=== PATIENT | male | born 1935 | race Caucasian/White ===

== ENCOUNTER → 2017-01-06 | Outpatient (CLI) | payer MEDICARE ==
[~2017-01-06] MED LIST: ASPIRIN PO; ASPIRIN325 M1 PO; ASPIRIN81 M2 PO; ASPIRIN81 MG PO; ATARAX PO; ATORVASTATIN CA10 MG PO; AZATHIOPRINE50 M1 PO; AZATHIOPRINE50 M2 PO; CALCIUM + D 6001 TA1 PO; CALCIUM 600 +1 EAC4 PO; CALCIUM 600 +1 EAC9 PO; COREG12.5 MG PO; COREG3.125 MG PO; COUMADIN5 MG PO; COZAAR25 MG PO; CYPROHEPTADINE H4 MG PO; DILANTIN PO; DYAZIDE 37.5/251 CAP PO; FLONASE16 GM; FLUTICASONE; HYDROMORPHONE HC2 MG PO; HYDROXYZINE HCL25 M1 PO; IMURAN50 MG PO; KEPPRA500 M1 PO; KEPPRA500 M2 PO; KEPPRA500 MG PO; KLONOPIN1 M1 PO; KLONOPIN1 MG PO; KLOR-CON PO; LASIX PO; LIPITOR PO; LIPITOR40 MG PO; LISINOPRIL5 MG PO; LO-DOSE ASPIRIN81 M1 PO; LORATADINE PO; LOSARTAN POTASS25 MG PO; LOSARTAN POTASS50 MG PO; LYRICA25 MG DOB; MECLIZINE HCL25 M2 PO; METANX CAPSULE1 EACH PO; METOPROLOL SUCC25 MG PO; METOPROLOL TAR25 MG PO; MULTIVITAMINS1 EAC3 PO; NEURONTIN600 MG PO; NEURONTIN800 MG PO; OXYCODON HCL-AP1 TA2 PO; OXYCODONE HCL10 M1 PO; PATIENT'S PHARMACY; PERCOCET 10/3251 TAB PO; PHENERGAN25 M1 PO; PLAVIX PO; PRAVACHOL PO; PREDNISONE PO; PRESERVISION A1 EAC1 PO; PRILOSEC40 MG PO; PRO AIR HFA; PROAIR HFA8.5 GM IH; PROMETHAZINE HC25 MG PO; PROTONIX PO; PULMICORT FLEXHALER; PULMICORT0.25 MG/2 IH; SINGULAIR PO; ST. JOSEPH ASP325 MG PO; SYNTHROID25 MCG PO; TEMOVATE 0.05%15 GM; TOPROL XL PO; TUSSIONEX PENN473 ML PO; VERAMYST10 GM; ZOFRAN ODT4 MG/UDTAB PO; ZOFRAN PO; ZOFRANODT PO; ZYRTEC10 M2 PO
--- NOTE | ~2017-01-06 | EKG ---
PATIENT: JUAN ALICIA UNIT #: [id number] Ventricular Rate: 89 BPM Atrial Rate: 89 BPM P-R Interval: 158 ms QRS Duration: 86 ms Q-T Interval: 360 ms QTC Calculation(Bezet): 438 ms P [place]: 84 degrees Calculated R [place]: -25 degrees Calculated T [place]: 51 degrees Diagnosis Line: Sinus rhythm with Premature atrial complexes Diagnosis Line: Voltage criteria for left ventricular hypertrophy Diagnosis Line: Cannot rule out Septal infarct (cited on or before Diagnosis Line: 06-MAR-2016) Diagnosis Line: Abnormal ECG Diagnosis Line: When compared with ECG of 06-MAR-2016 06:01, Diagnosis Line: Premature atrial complexes are now Present Diagnosis Line: Vent. rate has increased BY 33 BPM Diagnosis Line: Questionable change in initial forces of Septal Diagnosis Line: leads Diagnosis Line: T wave inversion no longer evident in Inferior Diagnosis Line: leads Diagnosis Line: Nonspecific T wave abnormality now evident in Diagnosis Line: Lateral leads Diagnosis Line: Confirmed by CAMMIE ARAUZ MD ([id number]) on Diagnosis Line: 01/08/2017 4:49:37 PM INTERPRETING MD: REGLA KERNS
[2017-01-06 16:12] LABS: HEMATOCRIT 43.1 % (38.0-50.0); HEMOGLOBIN 15.2 gm/dL (13.0-16.0); MEAN CORPUSCULAR HEMOGLOBIN 34.3 PG (28-34); MEAN CORPUSCULAR HGB CONC 35.4 g/dL (30-36); MEAN PLATELET VOLUME 7.4 FL (6.5-11.5); RED BLOOD COUNT 4.44 X10e (3.90-5.60); RED CELL DISTRIBUTION WIDTH 13.5 % (11.0-15.5)
== END | disposition home or self-care (01) ==
LOC: SLAB 15:57
PROVIDERS: Internal Medicine
DX: R06.00 Dyspnea, unspecified (principal)
CPT/HCPCS: 36415; 85027; 93005

== ENCOUNTER 2017-01-09 09:31 | Emergency (ER) | payer MEDICARE ==
--- NOTE | ~2017-01-09 | CT114 ---
[facility] A Service of [facility] RADIOLOGY TEXT RESULTS PATIENT: JUAN ALICIA LOCATION: [facility] : 36 UNIT #: [id number] AGE: [address]: Violet Lopez MD SEX: M ORDER DR: [id number] [facility] [address] [place], [place] [address] [id number] E MR#: [id number] Acc #: [id number] NAME: JUAN ALICIA. : 1935 SEX: M STUDY DATE/TIME: 01/09/2017 12:58 UNIT: [facility] ROOM: STUDY DESCRIPTION: CT Soft Tissue Neck W Cont Attending Physician: Violet Lopez M.D. Ordering Physician: Violet Lopez M.D. Primary Care Physician: Paul Moran M.D. MEDICAL IMAGING REPORT This report is preliminary unless electronic signature is present EXAM CT of the neck soft tissue with IV contrast media. HISTORY 81-year-old male patient with left upper jaw pain and swelling for [address] of the neck soft tissue performed during the intravenous administration of 100 mL of Isovue-370 with imaging acquired in the axial plane, followed by sagittal and coronal reconstructed imaging. This CT exam was performed with one or more of the following radiation dose reduction techniques: automatic exposure control, adjustment of mA and/or kV according to patient size, and iterative reconstruction. COMPARISON There is no previous study. FINDINGS I do not see placement of a marker at the site of interest. I have spoken to the technologist. She indicates that the patient's complaint is of gum swelling, left maxillary area (inside the mouth). The parotid glands and submandibular glands are unremarkable. There is a small heterogeneous low-attenuation lesion, left inferior thyroid gland, about 9 mm in diameter, nonspecific; I suggest followup ultrasound for further characterization. There are atherosclerotic vascular calcifications including coronary arteries. The temporomandibular joints are located. The mastoid air cells are clear. The visualized paranasal sinuses show some left sphenoid sinus mucosal disease and possibly a small dependent air-fluid level. The patient is partially edentulous and is particularly edentulous in the left maxillary region. There is no gross bone destruction appreciated. Given history, I would recommend ENT consultation and direct visualization. CT of the neck soft tissue is STS. [facility] A Service of [facility] RADIOLOGY TEXT RESULTS PATIENT: JUAN ALICIA [id number] 36 UNIT #: [id number] AGE: [address]: Violet Lopez MD SEX: M ORDER DR: insensitive for mucosal mass lesion or neoplastic disease. There are some cervical spine degenerative changes. This patient has had cataract surgery bilaterally. Visualized intracranial structures show atrophy. No significant mucosal asymmetry is appreciated on CT scanning. There is no evidence for lymphadenopathy. IMPRESSION 1. There is no evidence for cervical lymphadenopathy. No significant mucosal asymmetry is appreciated on the CT scan. Per the technologist, the patient indicates that the area of soft tissue swelling is inside the mouth in the left maxillary gum region. Please be aware that CT scanning is not sensitive for a diagnosis for mucosal neoplasm, and correlation with ENT consultation and direct visualization is, therefore, recommended. The patient is partially edentulous. 2. There is a heterogeneous area of lower attenuation in the left lobe of the thyroid gland inferiorly, about 9-mm in diameter. It is nonspecific and should be followed with a nonemergent ultrasound. 3. There are extensive vascular calcifications present, including involvement of the coronary arteries and carotid bifurcations. STAT * RESULT Placement of report in signature queue delayed. Dictated by... Marilynn Duff M.D. THIS IS AN ELECTRONICALLY VERIFIED REPORT Marilynn Duff M.D. at 01/12/2017 10:24 AM MILLER/desirae TD: 01/09/2017 14:16 JOB #: [id number] MEDICAL IMAGING REPORT Page 1 of 1 COPY
--- NOTE | ~2017-01-09 | CT2 ---
[facility] A Service of [facility] RADIOLOGY TEXT RESULTS PATIENT: JUAN ALICIA LOCATION: [facility] : 36 UNIT #: [id number] AGE: [address]: Violet Lopez MD SEX: M ORDER DR: [id number] [facility] [address] [place], [place] [address] [id number] E MR#: [id number] Acc #: [id number] NAME: JUAN ALICIA. : 1935 SEX: M STUDY DATE/TIME: 01/09/2017 12:58 UNIT: [facility] ROOM: STUDY DESCRIPTION: CT Abd and Pelv W Cont Attending Physician: Violet Lopez M.D. Ordering Physician: Violet Lopez M.D. Primary Care Physician: Paul Moran M.D. MEDICAL IMAGING REPORT This report is preliminary unless electronic signature is present EXAM CT abdomen and pelvis 01/09 INDICATIONS Left side abdominal pain for 4 days. TECHNIQUE Axial images were obtained through the abdomen and pelvis following IV contrast administration. Multiplanar reformats were obtained. This CT exam was performed with one or more of the following radiation dose reduction techniques: automatic exposure control, adjustment of mA and/or kV according to patient size, and iterative reconstruction. FINDINGS ABDOMEN: For a description of findings in the lung bases, please see the chest CT report dictated separately. Gallbladder surgically absent. No biliary obstruction. There is acute diverticulitis involving the mid-descending colon. No abscess is seen. The remainder of the unopacified GI tract is normal. The solid organs are normal. There is diffuse atherosclerotic disease. Abdominal aorta is normal in caliber. PELVIS: There is sigmoid diverticulosis. The GI tract is otherwise normal. The appendix is normal. Urinary bladder is normal. No free fluid is seen. There is an old L1 compression fracture, in addition to an old T10 compression fracture. IMPRESSION 1. Acute diverticulitis involving the mid-descending colon. No abscess is seen. 2. Sigmoid diverticulosis. Normal appendix. [facility] A Service of [facility] RADIOLOGY TEXT RESULTS PATIENT: JUAN ALICIA LOCATION: [facility] : 36 UNIT #: [id number] AGE: [address]: Violet Lopez MD SEX: M ORDER DR: 3. Cholecystectomy. Dictated by... Kimo Woods Jr., M.D. THIS IS AN ELECTRONICALLY VERIFIED REPORT Kimo Woods Jr., M.D. at 01/12/2017 5:53 AM RLK/claudia TD: 01/09/2017 20:36 JOB #: [id number] MEDICAL IMAGING REPORT Page 1 of 1 COPY
--- NOTE | ~2017-01-09 | CR72 ---
[facility] A Service of [facility] & [facility] RADIOLOGY TEXT RESULTS PATIENT: JUAN ALICIA LOCATION: [facility] : 36 UNIT #: [id number] AGE: [address]: Violet Lopez MD SEX: M ORDER DR: [id number] [facility] [address] [place], [place] [address] [id number] E MR#: [id number] Acc #: [id number] NAME: JUAN ALICIA. : 1935 SEX: M STUDY DATE/TIME: 01/09/2017 10:40 UNIT: [facility] ROOM: STUDY DESCRIPTION: CR Chest Single View Portable Attending Physician: Violet Lopez M.D. Ordering Physician: Violet Lopez M.D. Primary Care Physician: Paul Moran M.D. MEDICAL IMAGING REPORT This report is preliminary unless electronic signature is present EXAM Portable chest, 01/09/2017. HISTORY Shortness of breath and generalized weakness today. Asthma. Previous smoker. Benign essential hypertension. FINDINGS The cardiac and mediastinal structures are stable compared with 03/05/2016. Thoracic aorta is minimally calcified and moderately ectatic. The lungs are clear. There are no pleural effusions. IMPRESSION No active pulmonary disease. Dictated by... Butch Doan M.D. THIS IS AN ELECTRONICALLY VERIFIED REPORT Butch Doan M.D. at 01/10/2017 2:15 PM KRT/na TD: 01/09/2017 18:46 JOB #: [id number] MEDICAL IMAGING REPORT Page 1 of 1 COPY
--- NOTE | ~2017-01-09 | CT16 ---
[facility] A Service of [facility] & [facility] RADIOLOGY TEXT RESULTS PATIENT: JUAN ALICIA LOCATION: [facility] : 36 UNIT #: [id number] AGE: [address]: Violet Lopez MD SEX: M ORDER DR: [id number] [facility] [address] [place], [place] [address] [id number] E MR#: [id number] Acc #: [id number] NAME: JUAN ALICIA. : 1935 SEX: M STUDY DATE/TIME: 01/09/2017 12:58 UNIT: [facility] ROOM: STUDY DESCRIPTION: CT Angio Chest for PE Attending Physician: Violet Lopez M.D. Ordering Physician: Violet Lopez M.D. Primary Care Physician: Paul Moran M.D. MEDICAL IMAGING REPORT This report is preliminary unless electronic signature is present EXAM Chest CTA, 01/09. INDICATIONS Left upper and lower quadrant pain for 4 days. Shortness of air for 6 months. Jaw pain and swelling for [address] exam was performed with one or more of the following radiation dose reduction techniques: automatic exposure control, adjustment of mA and/or kV according to patient size, and iterative reconstruction. FINDINGS There is no pulmonary embolism or aortic dissection. There is coronary artery disease and atherosclerotic disease. There is slight enlargement of the ascending aorta at 4.0 cm diameter. The proximal arch is 4.0 cm. The distal largest 3.9 cm. The proximal descending aorta is 4.1 cm. Mid descending aorta is about 3.7 cm. There is no pleural or pericardial effusion. No adenopathy. There is some mild atelectasis in the lung bases. Additionally, there is a very mild degree of peripheral fibrosis in both lungs. There are multiple old left side rib fractures. For description of findings in the upper abdomen, please see the abdomen and pelvis CT report dictated separately. There are multiple old thoracic compression fractures. IMPRESSION 1. No pulmonary embolism or aortic dissection. 2. Dilatation of the ascending aorta measuring up to 4.0 cm with dilatation of the arch and proximal descending aorta which measures up to 4.1 cm. 3. 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 4. Coronary artery disease. 5. Multiple old thoracic compression fractures. STS. [facility] A Service of [facility] RADIOLOGY TEXT RESULTS PATIENT: JUAN ALICIA LOCATION: [facility] : 37 UNIT #: [id number] AGE: [address]: Violet Lopez MD SEX: M ORDER DR: Dictated by... Kimo Woods Jr., M.D. THIS IS AN ELECTRONICALLY VERIFIED REPORT Kimo Woods Jr., M.D. at 01/12/2017 5:53 AM BRADLY/harley TD: 01/09/2017 20:27 JOB #: [id number] MEDICAL IMAGING REPORT Page 1 of 1 COPY
--- NOTE | ~2017-01-09 | EKG ---
PATIENT: JUAN ALICIA UNIT #: [id number] Ventricular Rate: 81 BPM Atrial Rate: 81 BPM P-R Interval: 164 ms QRS Duration: 86 ms Q-T Interval: 366 ms QTC Calculation(Bezet): 425 ms P [place]: 23 degrees Calculated R [place]: -27 degrees Calculated T [place]: -4 degrees Diagnosis Line: Sinus rhythm with Premature atrial complexes Diagnosis Line: Voltage criteria for left ventricular hypertrophy Diagnosis Line: Borderline ECG Diagnosis Line: When compared with ECG of 09-JAN-2017 09:56, Diagnosis Line: (unconfirmed) Diagnosis Line: Premature atrial complexes are now Present Diagnosis Line: Confirmed by KORI MORELOS MD ([id number]) on 01/14/2017 Diagnosis Line: 2:33:30 PM INTERPRETING MD: JETHRO KERNS
[~2017-01-09 09:31] MED LIST changes: -ATORVASTATIN CA10 MG PO; -CALCIUM 600 +1 EAC9 PO; -COZAAR25 MG PO; -LYRICA25 MG DOB; -MECLIZINE HCL25 M2 PO; -METANX CAPSULE1 EACH PO; -MULTIVITAMINS1 EAC3 PO; -PATIENT'S PHARMACY; -PRESERVISION A1 EAC1 PO; -TOPROL XL PO
[2017-01-09] MEDS ORDERED: PATIENT'S PHARMACY (10:17)
[2017-01-09] MEDS ORDERED: AZATHIOPRINE50 M2 PO (10:17)
[2017-01-09] MEDS ORDERED: KEPPRA500 M1 PO (10:18)
[2017-01-09] MEDS ORDERED: PRESERVISION A1 EAC1 PO (10:18)
[2017-01-09] MEDS ORDERED: METANX CAPSULE1 EACH PO (10:19)
[2017-01-09] MEDS ORDERED: COZAAR25 MG PO (10:19)
[2017-01-09] MEDS ORDERED: PROTONIX PO (10:19)
[2017-01-09] MEDS ORDERED: MULTIVITAMINS1 EAC3 PO (10:19)
[2017-01-09] MEDS ORDERED: CALCIUM 600 +1 EAC9 PO (10:20)
[2017-01-09] MEDS ORDERED: ATORVASTATIN CA10 MG PO (10:21)
[2017-01-09] MEDS ORDERED: COUMADIN5 MG PO (10:21)
[2017-01-09] MEDS ORDERED: KLONOPIN1 MG PO (10:21)
[2017-01-09] MEDS ORDERED: ASPIRIN81 M2 PO (10:21)
[2017-01-09] MEDS ORDERED: HYDROXYZINE HCL25 M1 PO (10:22)
[2017-01-09] MEDS ORDERED: ZOFRAN PO (10:22)
[2017-01-09] MEDS ORDERED: PREDNISONE PO (10:22)
[2017-01-09] MEDS ORDERED: SYNTHROID25 MCG PO (10:50)
[2017-01-09] MEDS ORDERED: TOPROL XL PO (10:50)
[2017-01-09 10:51] LABS: BASOPHIL% 0.7 % (0-2.5); EOSINOPHIL# 0.3 X10e3 (0-0.7); EOSINOPHIL% 4.2 % (0.0-7.0); HEMATOCRIT 41.4 % (38.0-50.0); HEMOGLOBIN 14.4 gm/dL (13.0-16.0); LYMPHOCYTE# 0.8 X10e3 (1.0-3.5); LYMPHOCYTE% 11.2 % (17.0-45.0); MEAN CELL VOLUME 96.6 FL (83-96); MEAN CORPUSCULAR HEMOGLOBIN 33.6 PG (28-34); MEAN CORPUSCULAR HGB CONC 34.8 g/dL (30-36); NEUTROPHIL# 5.2 X10e3 (1.5-7.1); NEUTROPHIL% 70.9 % (40-75); PLATELET COUNT 139 X10e3 (140-420); RED BLOOD COUNT 4.28 X10e (3.90-5.60); RED CELL DISTRIBUTION WIDTH 13.8 % (11.0-15.5); WHITE BLOOD COUNT 7.4 X10e3 (4.0-10.5)
[2017-01-09 10:54] LABS: DIFF IND NO
[2017-01-09 10:56] LABS: INFLUENZA A NEG (NEG); INFLUENZA B NEG (NEG)
[2017-01-09 10:58] LABS: POC - CKMB 1.4 ng/mL (0.0-7.9); POC - TROPONIN <0.05 ng/mL (<=0.05)
[2017-01-09 11:26] LABS: ALBUMIN SERUM 3.4 g/dL (3.5-5.0); BILIRUBIN, DIRECT 0.3 mg/dL (0.0-0.2); BILIRUBIN,INDIRECT 1.5 mg/dL (0.0-0.9); BILIRUBIN,TOTAL 1.8 mg/dL (0.2-2.0); BUN/CREATININE RATIO 16.25; CALCIUM SERUM 8.6 mg/dL (8.4-10.2); CREATININE SERUM 0.8 mg/dL (0.6-1.4); GLOM FILT RATE Estimated 84.4 mL/min (>60); POTASSIUM 3.5 mmol/L (3.5-5.1); PROTEIN TOTAL SERUM 6.3 g/dL (6.0-8.3)
[2017-01-09 15:24] LABS: POC - CKMB 1.8 ng/mL (0.0-7.9); POC - TROPONIN <0.05 ng/mL (<=0.05)
[2017-02-20] MEDS ORDERED: MECLIZINE HCL25 M2 PO (09:52)
== END 2017-01-09 17:10 | disposition home or self-care (01) ==
LOC: CED 09:31
PROVIDERS: Emergency Medicine
DX: K57.32 Diverticulitis of large intestine without perforation or abscess without bleeding (principal); J02.0 Streptococcal pharyngitis; E78.5 Hyperlipidemia, unspecified; G40.909 Epilepsy, unspecified, not intractable, without status epilepticus; K21.9 Gastro-esophageal reflux disease without esophagitis; E03.9 Hypothyroidism, unspecified; G47.33 Obstructive sleep apnea (adult) (pediatric); Z90.49 Acquired absence of other specified parts of digestive tract; I11.0 Hypertensive heart disease with heart failure; I50.9 Heart failure, unspecified; Z87.891 Personal history of nicotine dependence; Z88.5 Allergy status to narcotic agent
CPT/HCPCS: 36415; 70491; 71010; 71275; 74177; 80048; 80076; 82553; 83605; 83735; 83880; 84443; 84484; 85025; 87040; 87804; 87880; 93005; 99285; Q9967

== ENCOUNTER → 2017-01-20 | Outpatient (CLI) | payer MEDICARE ==
[~2017-01-20] MED LIST changes: +ATORVASTATIN CA10 MG PO; +CALCIUM 600 +1 EAC9 PO; +COZAAR25 MG PO; +LYRICA25 MG DOB; +MECLIZINE HCL25 M2 PO; +METANX CAPSULE1 EACH PO; +MULTIVITAMINS1 EAC3 PO; +PATIENT'S PHARMACY; +PRESERVISION A1 EAC1 PO; +TOPROL XL PO
--- NOTE | ~2017-01-20 | US128 ---
[id number] [address] [id number] O MR#: [id number] Acc #: [id number] NAME: JUAN ALICIA : 1935 SEX: M STUDY DATE/TIME: 01/20/2017 12:50 UNIT: [facility] ROOM: STUDY DESCRIPTION: Thyroid Attending Physician: Paul Moran M.D. Referring Physician: Paul Moran M.D. Ordering Physician: Paul Moran M.D. Primary Care Physician: Paul Moran M.D. MEDICAL IMAGING REPORT This report is preliminary unless electronic signature is present. EXAM Thyroid ultrasound, 01/20/2017 CLINICAL HISTORY Thyroid nodules seen on CT exam. FINDINGS In the right lobe of the gland there is a 2.0-3.0 mm tiny cystic lesion in the upper pole and a 2.0-3.0 mm hyperechoic lesion in the mid to lower pole. The left lobe of the gland is normal. Vascularity is normal to slightly diminished. IMPRESSION Tiny 2.0-3.0 mm nodules on the right of doubtful clinical significance. Dictated by... Franki Cho M.D. THIS IS AN ELECTRONICALLY VERIFIED REPORT Franki Cho M.D. at 01/22/2017 5:04 PM Grace TD: 01/22/2017 13:00 JOB #: [id number] MEDICAL IMAGING REPORT Page 1 of 1
== END | disposition home or self-care (01) ==
LOC: SGUS 12:40
DX: E04.1 Nontoxic single thyroid nodule (principal)
CPT/HCPCS: 76536

== ENCOUNTER → 2017-02-20 | Day surgery (SDC) | payer MEDICARE ==
--- NOTE | ~2017-02-20 | OR ---
Unit #: [id number] #: [id number] Patient: JUAN ALICIA [id number] [address] [address] [id number] O MR#: [id number] NAME: JUAN ALICIA. ROOM: Date of Procedure: 02/20/2017 Admission Date: 02/20/2017 Surgeon: David Barnard M.D. : 1935 Attending Physician: David Barnard M.D. Primary Care Physician: Paul Moran M.D. OPERATIVE REPORT PREOPERATIVE DIAGNOSES Dyspepsia, anorexia, weight loss, and upper abdominal epigastric pain. PROCEDURES PERFORMED 1. Upper gastrointestinal endoscopy and biopsy. 2. Upper gastrointestinal endoscopy and dilation. POSTOPERATIVE DIAGNOSES 1. The patient had moderate distal erosive esophagitis. 2. There was a medium-sized hiatus hernia. 3. Moderate prepyloric antral erosive gastritis. 4. Focal patchy erosive duodenitis. 5. Rest of the examination up to third part of duodenum was normal. A biopsy was obtained from the antrum for CLOtest. In addition, a 60-Korean Durbin dilator was introduced through the oral cavity to dilate the distal esophageal ring; however, this could not be totally inserted as the patient had some contour or curvature of the esophagus that was not possible to navigate. RECOMMENDATIONS The patient advised to increase the dose of pantoprazole to 40 mg p.o. b.i.d. SEDATION USED MAC. DESCRIPTION OF PROCEDURE Following detailed explanation of potential risks and complications of an upper endoscopy, namely perforation, bleeding, and complications related to sedation, the patient was brought to GI lab and laid in the left lateral decubitus position. Lubricated tip of the Olympus video upper endoscope was passed through the bite block into the proximal esophagus under direct vision. The entire esophageal mucosa was examined. The patient was noted to have moderate distal erosive esophagitis. The scope was then advanced into the gastric cavity and the latter was insufflated. Mucosa of the fundus, body, and antrum examined. The patient was noted to have moderate diffuse prepyloric antral erosive gastritis. Pylorus was intubated with visualization of the duodenal bulb. The latter was noted to have focal patchy erosive duodenitis. Second and third part of duodenum were normal. Upon withdrawal and retroflexion; incisura, cardia, and greater curve was examined and a biopsy was obtained from the antrum for CLOtest. The scope was then withdrawn in the distal esophagus. A Unit #: [id number] #: [id number] Patient: JUAN ALICIA medium-sized hiatus hernia was noted. In addition, the distal esophageal ring was seen. The scope was then withdrawn all the way up to pharynx. No additional findings were noted. A 60-Korean Durbin dilator was introduced through the oral cavity and advanced into the esophagus; however, total insertion was not possible due to the irregular contour of the esophagus. As a result, the dilator was withdrawn without effective dilation done. Relook endoscopy did not show any bleeding or injury in the esophagus. The patient tolerated the procedure without any postprocedure complications. Dictated by... Caitlin Quintanilla TD: 02/20/2017 14:57 JOB #: [id number] OPERATIVE REPORT Page 1 of 1 X David Barnard MD X PROCEDURE OPERATIVE NOTE
== END | disposition home or self-care (01) ==
LOC: COPS 08:54
DX: K29.80 Duodenitis without bleeding (principal); K20.8 Other esophagitis; K44.9 Diaphragmatic hernia without obstruction or gangrene; K21.9 Gastro-esophageal reflux disease without esophagitis; E03.9 Hypothyroidism, unspecified; I25.10 Atherosclerotic heart disease of native coronary artery without angina pectoris; E78.5 Hyperlipidemia, unspecified; J45.909 Unspecified asthma, uncomplicated; I10 Essential (primary) hypertension; R56.9 Unspecified convulsions; Z86.73 Personal history of transient ischemic attack (TIA), and cerebral infarction without residual deficits; Z88.5 Allergy status to narcotic agent; Z90.49 Acquired absence of other specified parts of digestive tract; Z95.5 Presence of coronary angioplasty implant and graft; Z79.899 Other long term (current) drug therapy; Z79.01 Long term (current) use of anticoagulants; Z79.82 Long term (current) use of aspirin
CPT/HCPCS: 87077; 88305

== ENCOUNTER 2017-03-24 11:44 | Emergency (ER) | payer MEDICARE ==
[~2017-03-24] VITALS: Ht 180.3 cm; Wt 99.8 kg
--- NOTE | ~2017-03-24 | CR72 ---
[facility] A Service of [facility] RADIOLOGY TEXT RESULTS PATIENT: JUAN ALICIA LOCATION: [facility] : 36 UNIT #: [id number] AGE: [address]: Desiree Perez MD SEX: M ORDER DR: [id number] [facility] [address] [place], [place] [address] [id number] E MR#: [id number] Acc #: [id number] NAME: JUAN ALICIA. : 1935 SEX: M STUDY DATE/TIME: 03/24/2017 13:15 UNIT: [facility] ROOM: STUDY DESCRIPTION: CR Chest Single View Portable Attending Physician: Desiree Perez M.D. Ordering Physician: Desiree Perez M.D. Primary Care Physician: Paul Moran M.D. MEDICAL IMAGING REPORT This report is preliminary unless electronic signature is present EXAM Portable chest HISTORY Weakness, shortness of breath over the past week. COMPARISON 01/09/2017 TECHNIQUE Single AP view of the chest was obtained. FINDINGS Single view of the chest shows a tortuous ectatic thoracic aorta not significantly changed from the previous exam. The heart and mediastinum are stable. The lungs are clear with normal vascular markings. IMPRESSION Tortuous ectatic aorta. No active disease. Dictated by... Kimo Courtney M.D. THIS IS AN ELECTRONICALLY VERIFIED REPORT Kimo Courtney M.D. at 03/27/2017 7:03 AM ANNA/lemuel TD: 03/24/2017 22:16 JOB #: [id number] MEDICAL IMAGING REPORT Page 1 of 1 COPY
--- NOTE | ~2017-03-24 | EKG ---
PATIENT: JUAN ALICIA UNIT #: [id number] Ventricular Rate: 75 BPM Atrial Rate: 75 BPM P-R Interval: 146 ms QRS Duration: 88 ms Q-T Interval: 390 ms QTC Calculation(Bezet): 435 ms P [place]: 11 degrees Calculated R [place]: -21 degrees Calculated T [place]: -18 degrees Diagnosis Line: Sinus rhythm with Premature atrial complexes Diagnosis Line: Voltage criteria for left ventricular hypertrophy Diagnosis Line: Nonspecific ST abnormality Diagnosis Line: Abnormal ECG Diagnosis Line: When compared with ECG of 09-JAN-2017 11:08, Diagnosis Line: No significant change was found Diagnosis Line: Confirmed by KORI MORELOS MD ([id number]) on 03/25/2017 Diagnosis Line: 7:58:50 AM INTERPRETING MD: JETHRO KERNS
--- NOTE | ~2017-03-24 | CT71 ---
[facility] A Service [facility] RADIOLOGY TEXT RESULTS PATIENT: JUAN ALICIA LOCATION: [facility] : 36 UNIT #: [id number] AGE: [address]: Desiree Perez MD SEX: M ORDER DR: [id number] [facility] [address] [place], [place] [address] [id number] E MR#: [id number] Acc #: [id number] NAME: JUAN ALICIA. : 1935 SEX: M STUDY DATE/TIME: 03/24/2017 14:51 UNIT: [facility] ROOM: STUDY DESCRIPTION: CT Head Wo Contrast Attending Physician: Desiree Perez M.D. Ordering Physician: Desiree Perez M.D. Primary Care Physician: Paul Moran M.D. MEDICAL IMAGING REPORT This report is preliminary unless electronic signature is present EXAM Noncontrast CT head date 03/24/2017 HISTORY Disoriented. Weakness and dizziness for [address] head 07/01/2014. TECHNIQUE This CT exam was performed with one or more of the following radiation dose reduction techniques: automatic control, adjustment of mA and/or kV according to patient size, and iterative reconstruction. FINDINGS Moderate generalized atrophy with compensatory prominence of ventricles and extraaxial spaces again noted. Scattered hypodensities in the deep white matter of the brain are nonspecific but favored to represent changes of chronic microvascular disease. The schwartz matter - white matter junction distinction appears preserved, without CT evidence of acute infarct. No acute intracranial hemorrhage, mass lesion, mass effect or midline shift is identified. Major paranasal sinuses and mastoid air cells appear clear, no acute displaced calvarial fracture is seen. IMPRESSION 1. No acute intracranial findings or significant change compared to 07/01/2014. Moderate atrophy. 2. Mild chronic microvascular disease changes. Dictated by... Ginna Jones M.D. [facility] A Service [facility] RADIOLOGY TEXT RESULTS PATIENT: JUAN ALICIA LOCATION: [facility] : 37 UNIT #: [id number] AGE: [address]: Desiree Perez MD SEX: M ORDER DR: THIS IS AN ELECTRONICALLY VERIFIED REPORT Ginna Jones M.D. at 03/27/2017 8:34 AM INDER/lemuel TD: 03/25/2017 04:19 JOB #: [id number] MEDICAL IMAGING REPORT Page 1 of 1 COPY
[~2017-03-24 11:44] MED LIST changes: -LYRICA25 MG DOB
[2017-03-24] MEDS ORDERED: AZATHIOPRINE50 M2 PO (12:34)
[2017-03-24] MEDS ORDERED: LYRICA25 MG DOB (12:35)
[2017-03-24 13:29] LABS: BASOPHIL# 0.1 X10e3 (0-0.3); BASOPHIL% 0.9 % (0-2.5); EOSINOPHIL# 0.3 X10e3 (0-0.7); EOSINOPHIL% 5.6 % (0.0-7.0); HEMATOCRIT 41.2 % (38.0-50.0); HEMOGLOBIN 14.5 gm/dL (13.0-16.0); LYMPHOCYTE# 1.3 X10e3 (1.0-3.5); LYMPHOCYTE% 24.5 % (17.0-45.0); MEAN CELL VOLUME 97.1 FL (83-96); MEAN CORPUSCULAR HEMOGLOBIN 34.1 PG (28-34); MEAN CORPUSCULAR HGB CONC 35.1 g/dL (30-36); MEAN PLATELET VOLUME 7.3 FL (6.5-11.5); MONOCYTE# 0.7 X10e3 (0-1.0); MONOCYTE% 13.4 % (3.0-12.0); NEUTROPHIL# 3.1 X10e3 (1.5-7.1); NEUTROPHIL% 55.6 % (40-75); PLATELET COUNT 144 X10e3 (140-420); RED BLOOD COUNT 4.24 X10e (3.90-5.60); RED CELL DISTRIBUTION WIDTH 13.1 % (11.0-15.5); WHITE BLOOD COUNT 5.5 X10e3 (4.0-10.5)
[2017-03-24 13:37] LABS: DIFF IND NO
[2017-03-24 13:40] LABS: URINE SOURCE CLEAN CATCH
[2017-03-24 13:46] LABS: INR 3.7
[2017-03-24 13:52] LABS: POC - CKMB 2.3 ng/mL (0.0-7.9); POC - TROPONIN <0.05 ng/mL (<=0.05)
[2017-03-24 13:53] LABS: ALBUMIN SERUM 3.3 g/dL (3.5-5.0); BILIRUBIN, DIRECT 0.1 mg/dL (0.0-0.2); BILIRUBIN,INDIRECT 0.7 mg/dL (0.0-0.9); BILIRUBIN,TOTAL 0.8 mg/dL (0.2-2.0); BUN/CREATININE RATIO 16.66; CALCIUM SERUM 8.3 mg/dL (8.4-10.2); CREATININE SERUM 0.9 mg/dL (0.6-1.4); GLOM FILT RATE Estimated 80.4 mL/min (>60); POTASSIUM 3.5 mmol/L (3.5-5.1); PROTEIN TOTAL SERUM 5.7 g/dL (6.0-8.3)
[2017-03-24 13:54] LABS: URINE APPEARANCE CLEAR; URINE BILIRUBIN NEG (NEG); URINE BLOOD NEG (NEG); URINE COLOR YELLOW; URINE GLUCOSE NEG (NEG); URINE KETONE NEG (NEG); URINE LEUKOCYTE ESTERASE NEG (NEG); URINE NITRATE NEG (NEG); URINE PH 6.5 (5-8); URINE PROTEIN NEG (NEG); URINE SPECIFIC GRAVITY 1.016 (1.003-1.035); URINE UROBILINOGEN 0.2 MG/DL (NEG)
[2017-03-24 14:41] LABS: MICRO INDICATED? NO
== END 2017-03-24 16:19 | disposition home or self-care (01) ==
LOC: CED 11:44
PROVIDERS: Emergency Medicine
DX: R53.1 Weakness (principal); Z88.5 Allergy status to narcotic agent; Z79.899 Other long term (current) drug therapy
CPT/HCPCS: 36415; 70450; 71010; 80048; 80076; 81003; 82553; 82947; 84484; 85025; 85610; 93005; 99284